=== PATIENT | male | born 1990 | race Caucasian/White ===

== ENCOUNTER 2019-06-11 08:49 | Emergency (ER) | payer SELFPAY ==
--- NOTE | 2019-06-11 09:39 | UC ---
Respiratory Complaint HPI - HPI Summary HPI Summary: 28-year-old male presenting with complaint of chest feeling heavy and back pain 5 days. She states the heaviness and pain are constant and not just when he breathes. States it is worse at night when he lies down. Also notes "thick mucus" that drains down his throat at night. States he does not have a cough but the one time that he did try to cough to clear the mucous it made his pain that much worse. He also states that his throat "feels smaller." When asked to elaborate he states that it just feels tight. Eating and drinking normally. Admits being anxious the past few days. Denies fever but states possible chills. Denies anyone ill contacts with similar symptoms. States he had the flu back in March. Denies history of asthma. Former smoker. Patient states she would like to be tested for covid 19. Denies known exposure to covid 19 or travel. - History of Current Complaint Chief Complaint: UCRespiratory Stated Complaint: HEAVY BREATHING CHEST/BACK PAIN SORE THROAT Hx Obtained From: Patient Pain Intensity: 1 Pain Scale Used: 0-10 Numeric - Allergies/Home Medications Allergies/Adverse Reactions: Allergies Allergy/AdvReac Type Severity Reaction Status Date / Time Penicillins Allergy Shortness Verified 06/11/19 09:02 of Breath Home Medications: Home Medications Albuterol HFA INHALER* [Ventolin HFA Inhaler*] 1 - 2 puff INH Q6H PRN #1 mdi [Rx] PMH/Surg Hx/FS Hx/Imm Hx Previously Healthy: Yes - Surgical History Surgical History: None - Social History Alcohol Use: None Substance Use Type: None Smoking Status (MU): Former Smoker Type: Cigarettes Length of Time of Smoking/Using Tobacco: 10 years, vaped for 5 years after When Did the Patient Quit Smoking/Using Tobacco: 2019 Household Exposure Type: Cigarettes Review of Systems All Other Systems Reviewed And Are Negative: Yes Constitutional: Positive: Chills ENT: Positive: Other - throat "feels smaller". Negative: Sore Throat, Sinus Congestion Respiratory: Positive: Shortness Of Breath, Other - "chest/back pain" worse at night. Negative: Cough Cardiovascular: Positive: Negative Gastrointestinal: Positive: Negative Musculoskeletal: Positive: Negative. Negative: Myalgia Neurological/Mental Status: Positive: Negative Psychological: Positive: Anxious Physical Exam - Summary Physical Exam Summary: Vital Signs Reviewed: Yes A+Ox3, no distress Eyes: Conjunctiva Clear ENT: Hearing grossly normal neck: supple Respiratory: Positive: No respiratory distress, No accessory muscle use Cardiovascular: skin color reflect adequate perfusion Musculoskeletal Exam: WOODRUFF x 4 without difficulty Neurological: Positive: Alert Psychological: Positive: anxious appearing Skin: Positive: no rash, no ecchymosis Respiratory Course/Dx - Course Course Of Treatment: To decrease transmission of covid 19, patient was interviewed by myself using telemedicine. This does limit the physical exam. The patient was tested for strep, flu, and covid 19 by SIMI Alvarez who took swabs while patient was in their car. Patient in no repspiratory distress and speaking in full sentences without issue. Flu and strep tests were negative. Discussed possible bronchitis vs allergies vs other viral illness with patient. I discussed results with the patient and informed him that he would receive the covid19 results from the health department within the next 3-5 days. I discussed self quarantining until results had been received from the health Department. I provided the patient with an inhaler as per patient's request to help with breathing. Instructed to go to the ED if he experiences worsening shortness of breath/ difficulty breathing. Patient voiced understanding and agreed with treatment plan. All questions answered to the best of my abilities. - Differential Dx/Diagnosis Provider Diagnosis: Anxiety, PND (post-nasal drip) Discharge ED - Sign-Out/Discharge Documenting (check all that apply): Patient Departure All imaging exams completed and their final reports reviewed: No Studies - Discharge Plan Condition: Stable Disposition: HOME Prescriptions: Albuterol HFA INHALER* [Ventolin HFA Inhaler*] 1 - 2 puff INH Q6H PRN #1 mdi PRN Reason: Shortness Of Breath Patient Education Materials: Shortness of Breath (ED), Acute Bronchitis (ED) Additional Instructions: As discussed, your strep and flu tests were negative. Your covid 19 test was sent and you will receive the results from the health department within 3-5 days. You may take over the counter decongestants to help reduce mucus production. Nasal saline spray may also help alleviate symptoms. Use the inhaler as directed for your shortness of breath. Take tylenol as directed for pain relief. Get plenty of rest and fluids. Go to the emergency room if you experience any new or worsening symptoms. - Billing Disposition and Condition Condition: STABLE Disposition: Home
[2019-06-11 09:47] LABS: Influenza A Molecular Negative (Negative); Influenza B Molecular Negative (Negative)
== END 2019-06-11 10:22 | disposition home or self-care (01) ==
LOC: UCEAST 08:49
DX: R09.82 Postnasal drip (principal); F41.9 Anxiety disorder, unspecified; Z87.891 Personal history of nicotine dependence
CPT/HCPCS: 87651; 99202; G0463; U0002